=== PATIENT | female | born 1975 | race African-American/Black ===

== ENCOUNTER 2017-04-07 20:52 | Emergency (ER) | payer SELFPAY ==
[2017-04-07 20:53] VITALS: BP 146/98; PULSE 91; RESP 18; TEMP 36.8; O2SAT 100; BMI 44.6
--- NOTE | 2017-04-07 22:28 | ED.DCSUM_ITS ---
- ER Visit Summary Date of Service: 04/07/17 Chief Complaint: Back pain History of Present Illness: The patient is a 42 F who presents with lower back pain for 1-2 months. No history of fall or injury. No associated symptoms. She denies abdominal pain fever numbness tingling radiation to the legs urinary retention or fecal incontinence. She has had some relief with anti- inflammatory drugs. Physical Examination: Afebrile vitals unremarkable Heart regular rate and rhythm Lungs are clear Paraspinal lumbar tenderness more pronounced on the right Abdomen soft and nontender 5 out of 5 strength with dorsiflexion, plantarflexion, extensor hallucis longus bilaterally normal sensation light touch Test Results: Not indicated Emergency Department Course and Treatment: History and examination are consistent with lumbosacral strain. She was prescribed Mobic and Flexeril. She was advised to follow-up with her primary care physician. She understands return for new or worsening symptoms and was instructed on specific signs and symptoms to monitor for. All questions answered at bedside, patient and family agreeable to the plan. Patient discharged Treatment Plan: [] Disposition: Discharge Impression: Lumbosacral strain This note was generated with [employer] dictation software. It may contain incorrect words, spelling, and punctuation that were not noted in review of the chart prior to signing ED Disposition - Plan for ED Patient: Chief Complaint: Back Referrals: Mor Woodard MD [Primary Care Provider] -
--- NOTE | 2017-04-07 22:28 | ED.DEP ---
ED Disposition - Plan for ED Patient: Chief Complaint: Back Instructions: ED Sprain Strain Lumbar Prescriptions: Meloxicam [Mobic] 7.5 mg PO DAILY #14 tab Cyclobenzaprine [Flexeril] 10 mg PO TID PRN #20 tab PRN Reason: Muscle Spasm Referrals: Mor Woodard MD [Primary Care Provider] -
[2017-04-07 22:37] VITALS: BP 138/89; PULSE 88; RESP 17; O2SAT 95
== END 2017-04-07 22:38 | disposition home or self-care (01) ==
PROVIDERS: Emergency Provider Emergency Medicine; Family Provider Family Medicine; PCP Family Medicine
DX: S39.012A Strain of muscle, fascia and tendon of lower back, initial encounter (principal); X58.XXXA Exposure to other specified factors, initial encounter; Y93.9 Activity, unspecified; Y92.9 Unspecified place or not applicable; Y99.9 Unspecified external cause status; Z79.82 Long term (current) use of aspirin; Z79.899 Other long term (current) drug therapy; Z98.51 Tubal ligation status
CPT/HCPCS: 99282

== ENCOUNTER → 2017-04-28 15:38 | Outpatient (CLI) | payer SELFPAY ==
--- NOTE | 2017-04-28 15:42 | RAD_ITS ---
STUDY: X-RAY - LUMBAR SPINE REASON FOR EXAM: Female, 42 years old. Low back pain. No history of injury. TECHNIQUE: 5 view(s) of the lumbar spine were obtained. COMPARISON: None FINDINGS: Normal lumbar lordosis. There is no substantial scoliosis. There is a normal alignment of the vertebrae. Normal vertebral bodies and endplates. Normal disc space heights. The soft tissue structures are unremarkable. RAD/L/S Spine Min 4 Views IMPRESSION: Normal x-ray examination of the lumbar spine. Electronically Signed: Florian Zendejas MD at 14:02 EST Tel , Service support ,
--- NOTE | 2017-04-28 15:43 | RAD_ITS ---
STUDY: X-RAY - THORACIC SPINE REASON FOR EXAM: Female, 42 years old. Mid to low back pain. No history of injury. TECHNIQUE: 3 view(s) of the thoracic spine were obtained. COMPARISON: None. . FINDINGS: There is straightening of the normal thoracic kyphosis. There is mild dextroscoliosis of the lower thoracic spine which could be positional. Normal thoracic vertebrae and endplates. Normal disc space heights. There is mild prominence of the left paravertebral soft tissues which could be exaggerated by patient's positioning. RAD/Thoracic Spine 3 Views IMPRESSION: Straightening of the thoracic spine. Mild prominence of the left paravertebral soft tissues as described above. No demonstrated acute osseous changes. If symptoms persist, MRI of the thoracic spine is recommended. Electronically Signed: Florian Zendejas MD at 13:15 EST Tel , Service support ,
== END ==
PROVIDERS: Family Provider Family Medicine; PCP Family Medicine; Visit Provider Family Medicine
DX: M54.5 Low back pain (principal); M54.6 Pain in thoracic spine
CPT/HCPCS: 72072; 72110

== ENCOUNTER 2018-01-16 15:44 | Emergency (ER) | payer OTHER, SELFPAY ==
[2018-01-16 15:45] VITALS: BP 154/92; PULSE 90; RESP 16; TEMP 37.1; O2SAT 98; BMI 43.4
--- NOTE | 2018-01-16 16:01 | RAD_ITS ---
STUDY: X-RAY CHEST REASON FOR EXAM: Female, 43 years old. Cough and cold for 2 days. Fever. Left-sided chest pain when coughing. TECHNIQUE: PA and lateral views of the chest. COMPARISON: March 10, 2016. FINDINGS: The lungs are clear and expanded. There is no demonstrated pleural abnormality. Normal size heart. Normal mediastinum and milind. Normal visualized pulmonary arteries. Normal visualized aortic arch and descending thoracic aorta. Normal visualized thoracic spine. Normal visualized ribs, clavicles, and shoulders. There is no demonstrated abnormality of the visualized soft tissue structures of the upper abdomen. RAD/Chest PA and Lateral IMPRESSION: No acute cardiopulmonary disease or interval change. Electronically Signed: Yoshi Cooper DO at 16:46 EST Tel [phone], Service support ,
--- NOTE | 2018-01-16 16:08 | ED.DCSUM_ITS ---
- ER Visit Summary Date of Service: 01/16/18 Chief Complaint: Cough and rib cage pain History of Present Illness: The patient is a 43 F no significant past medical history. Says she is at a 3-day history starting on Monday with a productive cough of yellowish sputum. States she has been coughing so hard her rib cage hurts. She denies any shortness of breath. She has had a subjective but no documented fever. She has had nausea and vomiting due to phlegm. She denies any diarrhea. She denies any hemoptysis. Physical Examination: All signs are stable and afebrile. Pulse ox is 98% on room air no signs of hypoxia. H EENT exam unremarkable. Nasal congestion. Posterior pharynx moist and pink. No erythema or exudate. TMs normal. Neck nontender no lymphadenopathy. Lungs clear to auscultation bilaterally. Dry cough. Heart regular rate and rhythm no murmur. Chest wall is tender along the left lateral rib cage. There is no ecchymosis or bruising. No subcu air nor crepitance. Abdomen soft and nontender. Normal bowel sounds no peritoneal signs. Patient moving all 4 extremities. Neurovascular intact. Calves nontender without edema or cords. Neurologically she is awake alert with no focal motor deficits. Test Results: Chest x-ray PA and lateral views show no acute abnormality. No pneumonia seen. Emergency Department Course and Treatment: Treated with Motrin for pain. Treatment Plan: Plenty of fluids and rest. Hycodan cough syrup. Disposition: Discharge Impression: Acute bronchitis with chest wall strain from coughing This note was generated with [employer] dictation software. It may contain incorrect words, spelling, and punctuation that were not noted in review of the chart prior to signing ED Disposition - Plan for ED Patient: Chief Complaint: Cold Sx Referrals: Mor Woodard MD [Primary Care Provider] -
--- NOTE | 2018-01-16 16:25 | ED.DEP ---
ED Disposition - Plan for ED Patient: Disposition: Home or Assisted Living Chief Complaint: Cold Sx Instructions: Acute Bronchitis Prescriptions: Hydrocodone Bit/Homatropine [Hycodan Syrup] 5 ml GT Q4H PRN PRN 5 Days #5 udc PRN Reason: Cough Azithromycin [Zithromax Z-Yahir] 250 mg PO UD #1 box Referrals: Mor Woodard MD [Primary Care Provider] - 1 Week if not improving Additional Instructions: Hycodan for the cough. Motrin and Tylenol for chest wall pain. More than likely this is a viral syndrome. If not improving however may start antibiotic as needed.
[2018-01-16] MEDS: Ibuprofen 600 MG Tablet PO (16:31)
--- OUTSIDE RECORDS SUMMARY | 2018-03-14 09:08 | XMS RPT_ITS ---
:1975 Author Organization OH[facility] Care Team Providers Name Role Phone Mor Woodard Primary Care Unavailable Stanislav Marti Attending Unavailable Mor Woodard Attending Unavailable Mor Woodard Primary Care Unavailable Mor Woodard Primary Care Unavailable Cuco Bird Attending Unavailable PROBLEMS PROBLEMS DATE TYPE CONDITION / CODE ATTENDING STATUS SOURCE 01/16/2018 Unknown J40 - Cuco Bird Active [place] Bronchitis, not Community specified as Hospital acute or chronic Repository / J40(ICD-10) 04/28/2017 Unknown M54.5 - Low back Mor Woodard pain / Community M54.5(ICD-10) Hospital Repository 04/28/2017 Unknown M54.6 - Pain in Mor Woodard Active [place] thoracic spine / Community M54.6(ICD-10) Hospital Repository PROCEDURES PROCEDURES No Procedure Records FoundRESULTS RESULTS DISCHARGE INSTRUCTION Observed: 01/16/2018 Status: F Source: [place] 11:04 PM [facility] REPOSITORY [facility] Medical Records Department [address] [place] [address] Discharge Instruction 01/16/18 1625 MR#: [id number] Acct: [id number] Name: MATTHEW DRAPER Rep #: [id number] : 1975 43 From: Cuco Bird MD PCP: Mor Woodard MD Status: DEP ER ED Disposition - Plan for ED Patient: Disposition: Home or Assisted Living Chief Complaint: Cold Sx Instructions: Acute Bronchitis Prescriptions: Hydrocodone Bit/Homatropine [Hycodan Syrup] 5 ml GT Q4H PRN PRN 5 Days #5 udc PRN Reason: Cough Azithromycin [Zithromax Z-Yahir] 250 mg PO UD #1 box Referrals: Mor Woodard MD [Primary Care Provider] - 1 Week if not improving Additional Instructions: Hycodan for the cough. Motrin and Tylenol for chest wall pain. More than likely this is a viral syndrome. If not improving however may start antibiotic as needed. What to do if you have Problems For any increased pain, shortness of breath, bleeding, nausea or vomiting, chest pain, or any unexpected problems, contact your Primary Care Provider. Call [facility] ([phone]) or report to the closest Emergency Room. Call 911 if necessary. 01/16/18 4956 <Electronically signed by Cuco Bird MD> Date Cuco Bird MD Cosigner Signature (If Indicated): Date CC: Mor Woodard MD EMERGENCY DEPARTMENT Observed: 01/16/2018 Status: F Source: [place] SUMMARY 11:04 PM [facility] REPOSITORY [facility] Medical Records Department [address] [place] [address] Emergency Department Summary 01/16/18 1603 MR#: [id number] Acct: [id number] Name: MATTHEW DRAPER Rep #: [id number] : 1975 43 From: Cuco Bird MD PCP: Mor Woodard MD Status: DEP ER - ER Visit Summary Date of Service: 01/16/18 Chief Complaint: Cough and rib cage pain History of Present Illness: The patient is a 43 F no significant past medical history. Says she is at a 3-day history starting on Monday with a productive cough of yellowish sputum. States she has been coughing so hard her rib cage hurts. She denies any shortness of breath. She has had a subjective but no documented fever. She has had nausea and vomiting due to phlegm. She denies any diarrhea. She denies any hemoptysis. Physical Examination: All signs are stable and afebrile. Pulse ox is 98% on room air no signs of hypoxia. H EENT exam unremarkable. Nasal congestion. Posterior pharynx moist and pink. No erythema or exudate. TMs normal. Neck nontender no lymphadenopathy. Lungs clear to auscultation bilaterally. Dry cough. Heart regular rate and rhythm no murmur. Chest wall is tender along the left lateral rib cage. There is no ecchymosis or bruising. No subcu air nor crepitance. Abdomen soft and nontender. Normal bowel sounds no peritoneal signs. Patient moving all 4 extremities. Neurovascular intact. Calves nontender without edema or cords. Neurologically she is awake alert with no focal motor deficits. Test Results: Chest x-ray PA and lateral views show no acute abnormality. No pneumonia seen. Emergency Department Course and Treatment: Treated with Motrin for pain. Treatment Plan: Plenty of fluids and rest. Hycodan cough syrup. Disposition: Discharge Impression: Acute bronchitis with chest wall strain from coughing This note was generated with [employer] dictation software. It may contain incorrect words, spelling, and punctuation that were not noted in review of the chart prior to signing ED Disposition - Plan for ED Patient: Chief Complaint: Cold Sx Referrals: Mor Woodard MD [Primary Care Provider] - What to do if you have Problems For any increased pain, shortness of breath, bleeding, nausea or vomiting, chest pain, or any unexpected problems, contact your Primary Care Provider. Call [facility] ([phone]) or report to the closest Emergency Room. Call 911 if necessary. 01/16/18 2304 <Electronically signed by Cuco Bird MD> Date Cuco Bird MD Cosigner Signature (If Indicated): Date CC: Mor Woodard MD CHEST PA AND LATERAL Observed: 01/16/2018 Status: F Source: [place] 4:01 PM [facility] REPOSITORY [facility] Imaging Services [address] [place] [address] Chest PA and Lateral MR#: [id number] Acct: [id number] Name: MATTHEW DRAPER Rep #: [id number] : 1975 F 43 From: Yoshi Cooper DO PCP: Mor Woodard MD Status: DEP ER Study: Chest PA and Lateral Date of Exam: 01/16/18 Exam# [id number] Ordering Dr: Cuco Bird MD STUDY: X-RAY CHEST REASON FOR EXAM: Female, 43 years old. Cough and cold for 2 days. Fever. Left-sided chest pain when coughing. TECHNIQUE: PA and lateral views of the chest. COMPARISON: March 10, 2016. FINDINGS: The lungs are clear and expanded. There is no demonstrated pleural abnormality. Normal size heart. Normal mediastinum and milind. Normal visualized pulmonary arteries. Normal visualized aortic arch and descending thoracic aorta. Normal visualized thoracic spine. Normal visualized ribs, clavicles, and shoulders. There is no demonstrated abnormality of the visualized soft tissue structures of the upper abdomen. RAD/Chest PA and Lateral IMPRESSION: No acute cardiopulmonary disease or interval change. Electronically Signed: Yoshi Cooper DO at 16:46 EST Tel [phone], Service support , CC: Cuco Bird MD; Mor Woodard MD Hat Finishing Materials Preparer: Signed PROGRESS Observed: 10/31/2017 Status: COMPLETED Source: [place] 4:22 PM [facility] REPOSITORY HNO ID: [id number] Author: Birgit (Hem Marker) Service: (none) Author Type: Nurse Practitioner Type: Progress Notes Filed: 10/31/2017 4:40 PM Note Text: Subjective HPI HPI Matthew Draper is a 42 year old female who presents today for CC of blister on right wrist. This started 1 day ago. Has tried popping the blister/unsuccessful. Symptoms are worsened by nothing. Risk factors none, no known bite/burn/injury. .Patient presents with: Derm Problem: small bump on right hand since yesterday No past medical history on file. PAST SURGICAL HISTORY Procedure Laterality Date - HERNIA REPAIR HX - TUBAL LIGATION HX ALLERGIES Aspirin; Morphine; Penicillin MEDICATIONS ALBUTEROL INHALATION Inhale as instructed as needed. etodolac (LODINE) 300 mg capsule Take 300 mg by mouth twice daily. docusate sodium (COLACE) 100 mg capsule Take 1 capsule by mouth twice daily as needed for Constipation. FAMILY HISTORY Problem Relation Age of Onset - Cancer Father Social History Substance Use Topics - Smoking status: Never Smoker - Smokeless tobacco: Never Used - Alcohol use Yes Comment: occ Review of Systems Constitutional: Negative for chills and fever. Musculoskeletal: Negative for joint pain and myalgias. Skin: Positive for itching. Negative for rash. Objective Blood pressure 120/70, pulse 72, temperature 36.7 ?C (98.1 ?F), temperature source Tympanic, resp. rate 18, weight 125.2 kg (276 lb). Physical Exam Constitutional: She is oriented to person, place, and time and well-developed, well-nourished, and in no distress. Non-toxic appearance. She does not have a sickly appearance. No distress. HENT: Head: Normocephalic and atraumatic. Cardiovascular: Pulses: Radial pulses are 2+ on the right side. Pulmonary/Chest: Effort normal. No accessory muscle usage. No respiratory distress. Musculoskeletal: Right wrist: Normal. Arms: Neurological: She is alert and oriented to person, place, and time. Skin: She is not diaphoretic. ASSESSMENT/PLAN: 1. Blister - ICD9: 919.2, ICD10: T14.8XXA -do not rupture blister/keep covered -use medication as prescribed -follow up if symptoms persist, worsen, change - ALBUTEROL INHALATION - MUPIROCIN 2 % TOPICAL OINTMENT Birgit Swartz APRN.CNP CNOV Observed: 10/31/2017 Status: COMPLETED Source: [place] 4:15 PM [facility] REPOSITORY Office Visit ([facility]) MATTHEW DRAPER Agustina ([id number]) 1975 F Date Time Provider Department 10/31/17 4:15 PM BIRGIT SWARTZ (SCHOOL LUNCH MONITOR) [facility] During your visit today, we recorded the following information about you: Temperature Pulse Respiration Blood pressure 98.1 degrees 72/minute 18/minute 120/70 Weight 125.2 kg Birgit Swartz APRN.CNP 10/31/2017 4:40 PM Signed Subjective HPI HPI Matthew Berrios Baron is a 42 year old female who presents today for CC of blister on right wrist. This started 1 day ago. Has tried popping the blister/unsuccessful. Symptoms are worsened by nothing. Risk factors none, no known bite/burn/injury. .Patient presents with: Derm Problem: small bump on right hand since yesterday No past medical history on file. PAST SURGICAL HISTORY Procedure Laterality Date - HERNIA REPAIR HX - TUBAL LIGATION HX ALLERGIES Aspirin; Morphine; Penicillin MEDICATIONS ALBUTEROL INHALATION Inhale as instructed as needed. etodolac (LODINE) 300 mg capsule Take 300 mg by mouth twice daily. docusate sodium (COLACE) 100 mg capsule Take 1 capsule by mouth twice daily as needed for Constipation. FAMILY HISTORY Problem Relation Age of Onset - Cancer Father Social History Substance Use Topics - Smoking status: Never Smoker - Smokeless tobacco: Never Used - Alcohol use Yes Comment: occ Review of Systems Constitutional: Negative for chills and fever. Musculoskeletal: Negative for joint pain and myalgias. Skin: Positive for itching. Negative for rash. Objective Blood pressure 120/70, pulse 72, temperature 36.7 ?C (98.1 ?F), temperature source Tympanic, resp. rate 18, weight 125.2 kg (276 lb). Physical Exam Constitutional: She is oriented to person, place, and time and well-developed, well-nourished, and in no distress. Non-toxic appearance. She does not have a sickly appearance. No distress. HENT: Head: Normocephalic and atraumatic. Cardiovascular: Pulses: Radial pulses are 2+ on the right side. Pulmonary/Chest: Effort normal. No accessory muscle usage. No respiratory distress. Musculoskeletal: Right wrist: Normal. Arms: Neurological: She is alert and oriented to person, place, and time. Skin: She is not diaphoretic. ASSESSMENT/PLAN: 1. Blister - ICD9: 919.2, ICD10: T14.8XXA -do not rupture blister/keep covered -use medication as prescribed -follow up if symptoms persist, worsen, change - ALBUTEROL INHALATION - MUPIROCIN 2 % TOPICAL OINTMENT ROWAN Sears APRN.CNP 10/31/2017 4:36 PM Signed ASSESSMENT/PLAN: 1. Blister - ICD9: 919.2, ICD10: T14.8XXA -use medication as prescribed -follow up if symptoms persist, worsen, change - ALBUTEROL INHALATION - MUPIROCIN 2 % TOPICAL OINTMENT Referring Provider: SELF [200] Allergies As of Date: 10/31/2017 Noted Allergy Reaction ASPIRIN 10/02/2016 7 - Swelling MORPHINE 10/02/2016 10 - Anaphylaxis PENICILLIN 10/02/2016 10 - Anaphylaxis Date Reviewed: 10/31/2017 Reviewed by: Birgit Swartz - Fully Assessed Reason for Visit: Derm Problem [33] Cmt: small bump on right hand since yesterday Primary Visit Diagnosis:Blister [T14.8XXA] Order(s):mupirocin (BACTROBAN) 2 % ointmentApply 1 application to affected area three times daily. Location: right wristDisp: 22 gRfl: 0 Prescriptions as of 10/31/2017 Sig: ALBUTEROL INHALATION Inhale as instructed as neede* MUPIROCIN 2 % TOPICAL OINTMENT Apply 1 application to affect* ETODOLAC 300 MG CAPSULE Take 300 mg by mouth twice da* DOCUSATE SODIUM 100 MG CAPSULE Take 1 capsule by mouth twice* Patient not taking: Reported on 10/31/2017 Problem List As Of Date: 10/31/2017 (None) Other instructions from your clinician: ASSESSMENT/PLAN: 1. Blister - ICD9: 919.2, ICD10: T14.8XXA -use medication as prescribed -follow up if symptoms persist, worsen, change - ALBUTEROL INHALATION - MUPIROCIN 2 % TOPICAL OINTMENT Prescriptions ordered this encounter Disp Refills Start End MUPIROCIN 2 % TOPICAL OINTMENT 22 g 0 10/31/2017 Route: TOPICAL Sig: Apply 1 application to affected area three times daily. Location: right wrist Encounter Status:Closed by BIRGIT SWARTZ CNP on 10/31/17 THORACIC SPINE 3 Observed: 04/28/2017 Status: F Source: [facility] 3:43 PM [facility] REPOSITORY [facility] Imaging Services [address] [place] [address] Thoracic Spine 3 Views MR#: [id number] Acct: [id number] Name: MATTHEW DRAPER Rep #: [id number] : 1975 F 42 From: Florian Zendejas MD PCP: Mor Woodard Status: REG CLI Study: Thoracic Spine 3 Views Date of Exam: 04/28/17 Exam# [id number] Ordering Dr: Mor Woodard MD STUDY: X-RAY - THORACIC SPINE REASON FOR EXAM: Female, 42 years old. Mid to low back pain. No history of injury. TECHNIQUE: 3 view(s) of the thoracic spine were obtained. COMPARISON: None. . FINDINGS: There is straightening of the normal thoracic kyphosis. There is mild dextroscoliosis of the lower thoracic spine which could be positional. Normal thoracic vertebrae and endplates. Normal disc space heights. There is mild prominence of the left paravertebral soft tissues which could be exaggerated by patient's positioning. RAD/Thoracic Spine 3 Views IMPRESSION: Straightening of the thoracic spine. Mild prominence of the left paravertebral soft tissues as described above. No demonstrated acute osseous changes. If symptoms persist, MRI of the thoracic spine is recommended. Electronically Signed: Florian Zendejas MD at 13:15 EST Tel , Service support , CC: Mor Woodard Hat Finishing Materials Preparer: Signed L/S SPINE MIN 4 Observed: 04/28/2017 Status: F Source: [place] VIEWS 3:43 PM [facility] REPOSITORY [facility] Imaging Services [address] [place] [address] L/S Spine Min 4 Views MR#: [id number] Acct: [id number] Name: MATTHEW DRAPER Rep #: [id number] : 1975 F 42 From: Florian Zendejas MD PCP: Mor Woodard Status: REG CLI Study: L/S Spine Min 4 Views Date of Exam: 04/28/17 Exam# [id number] Ordering Dr: Mor Woodard MD STUDY: X-RAY - LUMBAR SPINE REASON FOR EXAM: Female, 42 years old. Low back pain. No history of injury. TECHNIQUE: 5 view(s) of the lumbar spine were obtained. COMPARISON: None FINDINGS: Normal lumbar lordosis. There is no substantial scoliosis. There is a normal alignment of the vertebrae. Normal vertebral bodies and endplates. Normal disc space heights. The soft tissue structures are unremarkable. RAD/L/S Spine Min 4 Views IMPRESSION: Normal x-ray examination of the lumbar spine. Electronically Signed: Florian Zendejas MD at 14:02 EST Tel , Service support , CC: Mor Woodard Hat Finishing Materials Preparer: Signed DISCHARGE INSTRUCTION Observed: 04/07/2017 Status: F Source: [place] 10:30 PM [facility] REPOSITORY [facility] Medical Records Department [address] [place] [address] Discharge Instruction 04/07/178 MR#: [id number] Acct: [id number] Name: MATTHEW DRAPER Rep #: [id number] : 1975 42 From: Stanislav Marti MD PCP: Mor Woodard Status: REG ER ED Disposition - Plan for ED Patient: Chief Complaint: Back Instructions: ED Sprain Strain Lumbar Prescriptions: Meloxicam [Mobic] 7.5 mg PO DAILY #14 tab Cyclobenzaprine [Flexeril] 10 mg PO TID PRN #20 tab PRN Reason: Muscle Spasm Referrals: Mor Woodard MD [Primary Care Provider] - What to do if you have Problems For any increased pain, shortness of breath, bleeding, nausea or vomiting, chest pain, or any unexpected problems, contact your Primary Care Provider. Call [facility] ([phone]) or report to the closest Emergency Room. Call 911 if necessary. 04/07/172229 <Electronically signed by Stanislav Marti MD> Date Stanislav Marti MD Cosigner Signature (If Indicated): Date CC: Mor Woodard EMERGENCY DEPARTMENT Observed: 04/07/2017 Status: F Source: [place] SUMMARY 10:28 PM [facility] REPOSITORY [facility] Medical Records Department [address] [place] [address] Emergency Department Summary 04/07/172226 MR#: [id number] Acct: [id number] Name: MATTHEW DRAPER Rep #: [id number] : 1975 42 From: Stanislav Marti MD PCP: Mor Woodard Status: REG ER - ER Visit Summary Date of Service: 04/07/17 Chief Complaint: Back pain History of Present Illness: The patient is a 42 F who presents with lower back pain for 1-2 months. No history of fall or injury. No associated symptoms. She denies abdominal pain fever numbness tingling radiation to the legs urinary retention or fecal incontinence. She has had some relief with anti-inflammatory drugs. Physical Examination: Afebrile vitals unremarkable Heart regular rate and rhythm Lungs are clear Paraspinal lumbar tenderness more pronounced on the right Abdomen soft and nontender 5 out of 5 strength with dorsiflexion, plantarflexion, extensor hallucis longus bilaterally normal sensation light touch Test Results: Not indicated Emergency Department Course and Treatment: History and examination are consistent with lumbosacral strain. She was prescribed Mobic and Flexeril. She was advised to follow-up with her primary care physician. She understands return for new or worsening symptoms and was instructed on specific signs and symptoms to monitor for. All questions answered at bedside, patient and family agreeable to the plan. Patient discharged Treatment Plan: [] Disposition: Discharge Impression: Lumbosacral strain This note was generated with [employer] dictation software. It may contain incorrect words, spelling, and punctuation that were not noted in review of the chart prior to signing ED Disposition - Plan for ED Patient: Chief Complaint: Back Referrals: Mor Woodard MD [Primary Care Provider] - What to do if you have Problems For any increased pain, shortness of breath, bleeding, nausea or vomiting, chest pain, or any unexpected problems, contact your Primary Care Provider. Call [facility] ([phone]) or report to the closest Emergency Room. Call 911 if necessary. 04/07/172227 <Electronically signed by Stanislav Marti MD> Date Stanislav Garrett Signature (If Indicated): Date CC: Mor Vance ALLERGIES ALLERGIES DATE TYPE / NAME / CODE REACTION SEVERITY SOURCE CODE 01/16/2018 Drug Penicillins/F001 Unknown Unknown [place] Allergy/41 289951(RXNORM) [facility] [id number]([facility]) Repository 01/16/2018 Drug morphine/[id number] Inflammation of Unknown [place] Allergy/41 545(RXNORM) vein [facility] [id number]([facility]) Repository 10/02/2016 DRUG ASPIRIN SWELLING [address] [id number]([facility]) 10/02/2016 DRUG MORPHINE ANAPHYLAXIS [address] [id number]( Repository [facility]) 10/02/2016 DRUG PENICILLIN ANAPHYLAXIS [address] [id number]( Repository [facility]) ENCOUNTERS ENCOUNTERS ADMIT/DISCHARGE ACCOUNT ADMITTING ENCOUNTER LOCATION SOURCE NUMBER CLASS 01/16/2018/01/17/20 [id number] Emergency [address] ing:ED Repository 10/31/2017/11/02/19 [id number] Ambulatory [address] Repository 04/28/[id number] [facility] ing:HPRAD Repository 04/07/2017/04/07/19 [id number] Emergency [address] ing:ED Repository PAYERS PAYERS ENCOUNTER GUARANTOR PAYER SUBSCRIBER SOURCE 01/16/2018 DAMECA S Primary DAMECA S [place] [id number] Insurance:OSVALDO FISCHER: [facility] [id number] Repository [address]Rtp: [phone] [id number] [phone] () Date:[id number] [address]CA: 01/16/2018 Secondary NOT GIVENUNK [place] Insurance:SELF PAY [facility] Number: Effective Repository Date:2018-01-16 04/28/2017 MATTHEW Berrios Primary NOT GIVENUNK [place] [id number] Insurance:SELF PAY [place], [place] Number: Effective Repository [id number]: (706) Date:2017-04-28 [phone] () 04/07/2017 MATTHEW Berrios Primary NOT GIVENUNK [place] [id number] Insurance:SELF PAY [place] Number: Effective Repository [id number]: ([phone]) Date:2017-04-07 [phone] ()
== END 2018-01-16 16:40 | disposition home or self-care (01) ==
PROVIDERS: Emergency Provider Emergency Medicine; Family Provider Family Medicine; PCP Family Medicine
DX: J20.9 Acute bronchitis, unspecified (principal); S29.012A Strain of muscle and tendon of back wall of thorax, initial encounter; X58.XXXA Exposure to other specified factors, initial encounter; Y93.9 Activity, unspecified; Y92.9 Unspecified place or not applicable; Y99.9 Unspecified external cause status; R11.2 Nausea with vomiting, unspecified; Z79.82 Long term (current) use of aspirin; Z79.899 Other long term (current) drug therapy
CPT/HCPCS: 71046; 99282

== ENCOUNTER 2018-02-27 16:33 | Emergency (ER) | payer BC, SELFPAY ==
[2018-02-27 16:34] VITALS: PULSE 91; RESP 18; TEMP 36.4; O2SAT 97; BMI 44.5
--- NOTE | 2018-02-27 16:48 | RAD_ITS ---
STUDY: X-RAY - LEFT KNEE REASON FOR EXAM: Female, 43 years old. Pain, fall one week ago. TECHNIQUE: 3 view(s) of the knee. COMPARISON: None. FINDINGS: Normal visualized distal femur. Normal visualized proximal tibia and fibula. Normal proximal tibiofibular articulation. Normal medial femorotibial compartment. Normal lateral femorotibial compartment. Normal patellofemoral articulation. The soft tissue structures are unremarkable. RAD/Knee 3 Views IMPRESSION: Normal x-ray examination of the knee. No evidence of traumatic injury. Electronically Signed: Brad Michelle MD at 17:16 EST Tel , Service support ,
--- NOTE | 2018-02-27 18:22 | ED.VISSUMM ---
- ER Visit Summary Date of Service: 02/27/18 Chief Complaint: [Injury to left knee] History of Present Illness: The patient is a 43 F [presents to the emergency department with complaint of injury to her left knee that occurred on . Patient was coming down off of a porch when she slipped and partially did the splits. Patient states that her left knee twisted and pulled. She describes a burning sensation diffusely about her knee. Patient states that at times feels like the knees and give out. Patient states that the knee will pop at times.] Physical Examination: [HEENT-PERRLA, EOMI. Cranial nerves II through XII grossly intact. TMs clear. Mucous membranes moist. No adenopathy. Cardiovascular-regular rate and rhythm without murmur or ectopy Lungs-clear to auscultation, chest wall stable without crepitus or subcu emphysema Abdomen-normoactive bowel sounds, soft, nontender, no rebound or rigidity, no peritoneal signs. Extremities-intact ?4, normal range of motion, normal pulses, atraumatic. Left knee-no effusion noted. There is no ecchymosis or bruising noted. Patient has some mild diffuse tenderness on exam. Patient does not tolerate ligamentous exam secondary to pain. Neurovascular intact.] Test Results: [X-rays of the left knee obtained showed no fractures] Emergency Department Course and Treatment: [Patient was given a knee immobilizer] Treatment Plan: [Patient will be given a prescription for Naprosyn and [place] for pain. Patient will be referred to orthopedics for follow-up] Disposition: [Discharged home in stable condition] Impression: [Left knee sprain-possible internal derangement] This note was generated with [employer] dictation software. It may contain incorrect words, spelling, and punctuation that were not noted in review of the chart prior to signing ED Disposition - Plan for ED Patient: Chief Complaint: Lower Extremity Injury Referrals: Mor Woodard MD [Primary Care Provider] -
--- NOTE | 2018-02-27 18:24 | ED.DEP ---
ED Disposition - Plan for ED Patient: Chief Complaint: Lower Extremity Injury Instructions: ED Meniscal Injury Knee Poss Prescriptions: Hydrocodone Bitart/Apap 5-325 [[place] 5MG-325MG] 1 tab PO Q4H PRN PRN 2 Days #14 tab PRN Reason: Pain Naproxen [Naprosyn] 500 mg PO BID PRN #20 tab Referrals: Mor Woodard MD [Primary Care Provider] - Kaushik Saldaña MD [STAFF PHYSICIAN] - 3-5 Days
[2018-02-27 18:56] VITALS: PULSE 95; RESP 14; O2SAT 98
== END 2018-02-27 18:57 | disposition home or self-care (01) ==
LOC: ED 17:06
PROVIDERS: Emergency Provider Emergency Medicine; Family Provider Family Medicine; PCP Family Medicine
DX: S83.92XA Sprain of unspecified site of left knee, initial encounter (principal); W17.89XA Other fall from one level to another, initial encounter; Y93.9 Activity, unspecified; Y92.9 Unspecified place or not applicable; Y99.9 Unspecified external cause status; Z79.82 Long term (current) use of aspirin; Z79.1 Long term (current) use of non-steroidal anti-inflammatories (NSAID); Z79.899 Other long term (current) drug therapy
CPT/HCPCS: 73562; 99282

== ENCOUNTER 2018-07-01 07:08 | Emergency (ER) | payer BC, SELFPAY ==
[2018-07-01 07:09] VITALS: BP 117/80; PULSE 102; RESP 20; TEMP 36.4; O2SAT 100; BMI 46.5
--- NOTE | 2018-07-01 07:38 | CT_ITS ---
STUDY: CT ABDOMEN AND PELVIS WITH CONTRAST REASON FOR EXAM: Female, 43 years old. Nausea vomiting diarrhea right upper quadrant pain RADIATION DOSAGE (If Supplied By Facility): CTDIvol = ( 36.17 ) mGy, DLP = ( 1951.454 ) mGycm TECHNIQUE: Transaxial images were obtained from the dome of the diaphragm to the symphysis pubis without oral contrast. 100CC IV Isovue 300 was administered. Sagittal and coronal images were reconstructed. Individualized dose optimization techniques were used for this CT. COMPARISON: CT chest November 22, 2015 FINDINGS: The visualized lung bases are unremarkable. The visualized portions of the heart are within normal limits. There is a stable right signed intramammary lymph node or nodule measuring 8 mm right breast. Normal liver. The gallbladder is distended similar to the prior study. Normal spleen. Normal pancreas. Normal bilateral adrenal glands. There is a vague focus of low attenuation within the right kidney that measures 1.1 x 1.1 cm. This areas out of the field of view on the prior CT chest. Normal left kidney. Normal visualized stomach. Normal small intestine. There is a moderate amount of stool within the fairly redundant appearing distal descending colon. There is a fluid appearance of the ascending colon and transverse colon. The appendix is fluid-filled and of normal caliber. Normal abdominal aorta. Normal inferior vena cava. Normal retroperitoneum. Normal urinary bladder. There is a mildly thickened appearance of the endometrium. This may measure up to 1.4 cm allowing for cycle. Normal abdominal wall. Normal osseous structures. CT/Abdomen/Pelvis W IV Cont ONLY IMPRESSION: There are air-fluid levels within the proximal colon to the level of the splenic flexure. There is moderate stool in the distal colon. The patient may develop diarrhea. Consider gastroenteritis. Distended gallbladder similar to the prior study. Incidental finding of mild thickening of the endometrium could consider follow-up pelvic ultrasound on a routine basis. Electronically Signed: Giselle Haji MD at 10:18 EDT Tel , Service support ,
--- NOTE | 2018-07-01 07:39 | ED.VISSUMM ---
- ER Visit Summary Date of Service: 07/01/18 Chief Complaint: Abdominal pain, vomiting and diarrhea History of Present Illness: The patient is a 43 F who presents for 2 hours of vomiting and diarrhea, now with severe abdominal pain. Patient woke from sleep with vomiting and diarrhea. After the onset of the symptoms, she developed diffuse abdominal pain. She was also diaphoretic and sweaty. Patient denies any urinary symptoms, chest pain or shortness of breath. No other members of the family have similar symptoms. Patient has no medical history. She takes multivitamins daily. Allergy to morphine. No tobacco use. Physical Examination: Vital signs: afebrile, hemodynamically stable, no hypoxia on room air General: well nourished, well developed, appears uncomfortable Skin: warm, dry, no rash, no pallor HEENT: normocephalic and atraumatic; PERRL, EOMI, moist mucous membranes Cardiovascular: Tachycardic rate and rhythm without murmurs, no peripheral edema, 2+ pulses all distal extremities Respiratory: No increased work of breathing, lungs are clear to auscultation bilaterally, no rales, rhonchi or wheezing Abdominal: Abdomen is soft, diffusely tender to light palpation with normoactive bowel sounds, no guarding or rebound, no masses MSK: Moves all extremities, no deformities, normal strength Neuro: Awake and alert, oriented ?4. No facial droop, sensation and motor function intact and symmetric Test Results: Abnormal Lab Results 07/01/18 07/01/18 07/01/18 09:05 09:05 09:05 WBC 14.6 H RBC 4.29 Hgb 14.3 Hct 42.4 MCV 98.8 MCH 33.3 H MCHC 33.7 RDW 13.3 RDW Differential 46.5 H Plt Count 157 MPV 11.1 Immature Gran % (Auto) 0.300 Neut % (Auto) 84.3 H Lymph % (Auto) 8.6 L [place] % (Auto) 6.2 Eos % (Auto) 0.4 Baso % (Auto) 0.2 Absolute Neuts (auto) 12.3 H Absolute Lymphs (auto) 1.25 Total Counted Not Reportable Sodium 142 Potassium 4.1 Chloride 110 H Carbon Dioxide 24.0 Anion Gap 8 BUN 11 Creatinine 0.97 Estim Creat Clear Calc 69.29 Est GFR (MDRD) Af Amer 80 Est GFR (MDRD) Non-Af 66 BUN/Creatinine Ratio 11.4 Glucose 120 H Calcium 8.7 Total Bilirubin 0.20 AST 16 ALT 28 Alkaline Phosphatase 83 Total Protein 7.8 Albumin 3.6 Globulin 4.2 Albumin/Globulin Ratio 0.9 Lipase 42 L Serum , Qual NEGATIVE Clinical Impression(s) from Imaging Studies Abdomen/Pelvis CT 07/01/18 07:38 IMPRESSION: There are air-fluid levels within the proximal colon to the level of the splenic flexure. There is moderate stool in the distal colon. The patient may develop diarrhea. Consider gastroenteritis. Distended gallbladder similar to the prior study. Incidental finding of mild thickening of the endometrium could consider follow-up pelvic ultrasound on a routine basis. Electronically Signed: Giselle Haji MD at 10:18 EDT Tel , Service support , Medications Given Discontinued Medications Hydromorphone HCl (Dilaudid Inj) 1 mg IV X1 ONE Stop: 07/01/18 07:39 Last Admin: 07/01/18 08:55 Dose: 1 mg Sodium Chloride () 1,000 mls @ 1,000 mls/hr IV .Q1H ONE Stop: 07/01/18 08:37 Last Admin: 07/01/18 08:55 Dose: 1,000 mls/hr Ketorolac Tromethamine (Toradol) 15 mg IV X1 ONE Stop: 07/01/18 11:02 Emergency Department Course and Treatment: Patient received Zofran via EMS. Patient was given IV fluids and Dilaudid for her symptoms. Labs and CT of the abdomen and pelvis performed. Patient had a leukocytosis without a left shift, which may be secondary to the marginalization from vomiting. Otherwise labs were unremarkable. CT of the abdomen and pelvis showed no acute surgical process, and it was consistent with gastroenteritis. On reevaluation patient had significant improvement of her pain and no further nausea. No diarrhea in the emergency department. Patient was given a p.o. challenge. She was given Toradol for residual pain. Patient discharged with a scription for Zofran and Bentyl. Return precautions given. Patient discharged home in improved condition. Treatment Plan: [] Disposition: [] Impression: Acute gastroenteritis This note was generated with Dragon dictation software. It may contain incorrect words, spelling, and punctuation that were not noted in review of the chart prior to signing ED Disposition - Plan for ED Patient: Disposition: Home or Assisted Living Instructions: ED Vomiting Diarrhea Nonspecific Ad, ED Gastroenteritis Viral Prescriptions: Ondansetron [Zofran Odt] 4 mg PO Q8H PRN PRN #10 tab PRN Reason: Nausea Dicyclomine HCl [Bentyl] 20 mg PO TIDAC #30 cap Referrals: Mor Woodard MD [Primary Care Provider] - 3-5 Days if not improving Additional Instructions: You may use the Zofran as needed for nausea. Use the dicyclomine 4 times daily to help with crampy abdominal pain. Drink plenty of fluids to stay hydrated. Gatorade and Powerade are good choices while you are not feeling well. If you have any worsening of your condition or any new concerning symptoms, please return immediately to the emergency department for another evaluation.
[2018-07-01 08:52] VITALS: BP 122/75; PULSE 99; RESP 16; TEMP 37.1; O2SAT 100
[2018-07-01] MEDS: 0.9% Normal Saline 1,000 ML 1000 ML IV (08:55)
[2018-07-01] MEDS: HYDROmorphone 1 MG/ML Syringe IV (08:55)
[2018-07-01 09:23] LABS: Absolute Lymphocyte Count 1.25 X10^3/ul (0.83-4.51); Absolute Neutrophil Count 12.3 X10^3/uL (2.0-7.7); Basophil# 0.03 X10^3/uL; Basophil% 0.2 % (0-1); Eosinophil# 0.06 X10^3/uL; Eosinophils% 0.4 % (0-5); Hematocrit 42.4 % (37-47); Hemoglobin 14.3 g/dl (12.0-15.0); Lymphocyte # 1.25 X10^3/ul (4.0); Lymphocyte % 8.6 % (19-41); Mean Corp Hgb Conc 33.7 g/gl (32-36); Mean Corpuscular Hgb 33.3 pg (27.0-32.0); Mean Corpuscular Volume 98.8 fL (81-99); Mean Platelet Vol. 11.1 fl (6.2-12.0); Monocyte# 0.91 X10^3/uL; Monocyte% 6.2 % (0-10); Neutrophil # 12.28 X10^3/uL (2.7-7.7); Neutrophil % 84.3 % (47-70); POSITIVE COUNT NO; POSITIVE DIFFERENTIAL NO; POSITIVE MORPHOLOGY NO; Platelet Count 157 K/mm3 (150-450); RBC Distribution Width CV 13.3 % (11.6-14.6); RBC Distribution Width SD 46.5 fl (35.1-43.9); Red Blood Count 4.29 M/mm3 (4.2-5.4); White Blood Count 14.6 K/mm3 (4.4-11.0)
[2018-07-01 09:32] LABS: ALB/GLOB Ratio 0.9 RATIO (0.9-2.4); AST(SGOT) 16 U/L (15-37); Alanine Aminotransfer ALT/SGPT 28 U/L (13-56); Albumin, Serum 3.6 g/dL (3.2-5.0); Alkaline Phosphatase 83 U/L (45-117); Anion Gap 8 (5-15); BUN 11 mg/dL (7-18); BUN/Creat Ratio 11.4 RATIO (10-20); Calcium,Total 8.7 mg/dL (8.5-10.1); Chloride 110 mmol/L (98-107); Creatinine, Serum 0.97 mg/dL (0.55-1.02); EST Glomerular Filtration Rate 66 mL/min (>60); Est Glom Filt Rate - Afr Amer 80 mL/min (>60); Estimated Creatinine Clearance 69.29 ml/min; Globulin 4.2 g/dL (2.2-4.2); Glucose 120 mg/dL (74-106); Lipase 42 U/L (73-393); Potassium 4.1 mmol/L (3.5-5.1); Protein, Total 7.8 g/dL (6.4-8.2); Sodium Level 142 mmol/L (136-145)
[2018-07-01 09:33] LABS: Internal QC Validated? YES +Cl - CLEAR BKGD; Pregnancy, Serum, hCG Quali. NEGATIVE Negative
[2018-07-01] MEDS: Ketorolac 15 MG/ML Vial IV (11:12)
[2018-07-01 11:25] VITALS: BP 136/108; PULSE 96; RESP 18; O2SAT 100
== END 2018-07-01 11:34 | disposition home or self-care (01) ==
PROVIDERS: Emergency Provider Emergency Medicine; Family Provider Family Medicine; PCP Family Medicine
DX: K52.9 Noninfective gastroenteritis and colitis, unspecified (principal); Z88.5 Allergy status to narcotic agent
CPT/HCPCS: 36415; 74177; 80053; 83690; 84703; 85025; 96361; 96374; 96375; 99285; J7030; Q9967; A4216

== ENCOUNTER 2018-12-09 09:23 | Emergency (ER) | payer BC, SELFPAY ==
[2018-12-09 09:24] VITALS: BP 155/83; PULSE 99; RESP 17; TEMP 36.8; O2SAT 96; BMI 45.9
--- NOTE | 2018-12-09 09:35 | ED.DCSUM_ITS ---
- ER Visit Summary Date of Service: 12/09/18 Chief Complaint: Headache History of Present Illness: The patient is a 43 F with a headache. This started gradually over the past week. Her head hurts all over. Worse with light and noise. She thought she might have some sinus congestion as well. She tried E xcedrin Migraine, but it is not helping. She has a history of migraines. Denies trauma. Denies blood thinners. Denies . Physical Examination: Afebrile and vital signs unremarkable. Head and neck atraumatic. HEENT exam unremarkable. Cranial nerves grossly intact. Neck nontender with good range of motion. Skin normal. Normal strength and sensation. Normal gait. Test Results: None indicated Emergency Department Course and Treatment: Patient likely has a migraine. She has a history of migraines and similar symptoms. Denies trauma or other red flag features. She was treated with Compazine, Benadryl, Toradol, and normal saline bolus. On reevaluation, patient is resting. She awakens to voice. She says her headache has improved. She is requesting discharge. She declined further observation or further medication. I do not believe that any further diagnostic testing is indicated. Follow-up with her doctor. Return for any new or worsening issues. Treatment Plan: As above Disposition: Discharge Impression: 1. Migraine This note was generated with [employer] software. It may contain incorrect words, spelling, and punctuation that were not noted in review of the chart prior to signing ED Disposition - Plan for ED Patient: Referrals: Mor Woodard MD [Primary Care Provider] -
[2018-12-09] MEDS: DiphenhydrAMINE 50 MG/ML Syringe 25 MG IV (10:36)
[2018-12-09] MEDS: 0.9% Normal Saline 1,000 ML 999 ML IV (10:36)
[2018-12-09] MEDS: Ketorolac 30 MG/ML Syringe IV (10:37)
[2018-12-09] MEDS: proCHLORPERazine 10 MG/2 ML Vial IV (10:38)
--- NOTE | 2018-12-09 10:59 | ED.DEP ---
ED Disposition - Plan for ED Patient: Instructions: ED, Migraine (Classical) Referrals: Mor Woodard MD [Primary Care Provider] -
[2018-12-09 11:09] VITALS: BP 116/96
== END 2018-12-09 11:12 | disposition home or self-care (01) ==
PROVIDERS: Emergency Provider Emergency Medicine; Family Provider Family Medicine; PCP Family Medicine
DX: G43.909 Migraine, unspecified, not intractable, without status migrainosus (principal)
CPT/HCPCS: 96361; 96374; 96375; 99285; J7030; A4216

== ENCOUNTER → 2021-09-22 | Outpatient (CLI) | payer BC, SELFPAY ==
[2021-09-22 18:08] LABS: Absolute Lymphocyte Count 2.66 X10^3/uL (0.83-4.51); Absolute Neutrophil Count 4.5 X10^3/uL (2.0-7.7); Basophil# 0.05 X10^3/uL; Basophil% 0.6 % (0-1); Eosinophil# 0.14 X10^3/uL; Eosinophils% 1.7 % (0-5); Hematocrit 36.1 % (37-47); Hemoglobin 12.3 g/dL (12.0-15.0); Lymphocyte # 2.66 X10^3/ul (0.83-4.51); Lymphocyte % 33.1 % (19-41); Mean Corp Hgb Conc 34.1 g/dL (32-36); Mean Corpuscular Hgb 33.6 pg (27.0-32.0); Mean Corpuscular Volume 98.6 fL (81-99); Mean Platelet Vol. 11.8 fl (6.2-12.0); Monocyte# 0.64 X10^3/uL; NRBC Flagged by Analyzer 0 % (0-5); Neutrophil # 4.52 X10^3/uL (2.7-7.7); Neutrophil % 56.4 % (47-70); Platelet Count 180 K/mm3 (150-450); RBC Distribution Width CV 12.5 % (11.6-14.6); RBC Distribution Width SD 45.1 fl (35.1-43.9); Red Blood Count 3.66 M/mm3 (4.2-5.4)
[2021-09-22 18:43] LABS: ALB/GLOB Ratio 0.9 RATIO (0.9-2.4); AST(SGOT) 20 U/L (15-37); Alanine Aminotransfer ALT/SGPT 32 U/L (13-56); Albumin, Serum 3.3 g/dL (3.2-5.0); Alkaline Phosphatase 70 U/L (45-117); Anion Gap 6 (5-15); BUN 13 mg/dL (7-18); BUN/Creat Ratio 13.6 RATIO (10-20); Calcium,Total 8.6 mg/dL (8.5-10.1); Chloride 108 mmol/L (98-107); Creatinine, Serum 0.96 mg/dL (0.55-1.02); EST Glomerular Filtration Rate 66 mL/min (>60); Est Glom Filt Rate - Afr Amer 80 mL/min (>60); Globulin 3.6 g/dL (2.2-4.2); Glucose 97 mg/dL (74-106); Protein, Total 6.9 g/dL (6.4-8.2); Sodium Level 138 mmol/L (136-145)
[2021-09-22 19:49] LABS: Free T3 2.2 pg/mL (2.18-3.98); T4 Free Direct 0.89 ng/dL (0.76-1.46); Thyroid Stim Hormone (TSH) 0.66 uIU/mL (0.358-3.74)
[2021-09-22 22:37] LABS: Hepatitis B Surface Antibody Reactive; Hepatitis B Surface Antigen Non-Reactive (Nonreactive); Hepatitis C Antibody Non-Reactive (Nonreactive)
[2021-09-24 15:08] LABS: QNTFERON TB Mitogen Value > 10.00 IU/mL (.); QNTFERON TB1+ Ag Value 0.16 IU/mL (.); QNTFERON TB2+ Ag Value 0.17 IU/mL (.)
[2021-09-24 15:25] LABS: Hepatitis B Core Ab Total Negative (Negative); QNTIFERON TB Positive Criteria Negative (Negative)
== END | disposition home or self-care (01) ==
PROVIDERS: PCP Family Medicine; Visit Provider Dermatology
DX: L40.0 Psoriasis vulgaris (principal); L41.1 Pityriasis lichenoides chronica; Z79.899 Other long term (current) drug therapy
CPT/HCPCS: 36415; 80053; 84439; 84443; 84481; 85025; 86480; 86704; 86706; 86803; 87340

== ENCOUNTER → 2021-10-11 | Outpatient (CLI) | payer BC, SELFPAY ==
[2021-10-11 15:04] LABS: Absolute Lymphocyte Count 2.55 X10^3/uL (0.83-4.51); Absolute Neutrophil Count 5.1 X10^3/uL (2.0-7.7); Basophil# 0.05 X10^3/uL; Basophil% 0.6 % (0-1); Eosinophil# 0.14 X10^3/uL; Eosinophils% 1.7 % (0-5); Hemoglobin 12.6 g/dL (12.0-15.0); Lymphocyte # 2.55 X10^3/ul (0.83-4.51); Lymphocyte % 30.5 % (19-41); Mean Corp Hgb Conc 33.2 g/dL (32-36); Mean Corpuscular Hgb 32.6 pg (27.0-32.0); Mean Corpuscular Volume 98.4 fL (81-99); Monocyte# 0.52 X10^3/uL; Monocyte% 6.2 % (0-10); NRBC Flagged by Analyzer 0 % (0-5); Neutrophil # 5.08 X10^3/uL (2.7-7.7); Neutrophil % 60.6 % (47-70); Platelet Count 224 K/mm3 (150-450); RBC Distribution Width CV 12.6 % (11.6-14.6); RBC Distribution Width SD 45.1 fl (35.1-43.9); Red Blood Count 3.86 M/mm3 (4.2-5.4); White Blood Count 8.4 K/mm3 (4.4-11.0)
[2021-10-11 15:19] LABS: ALB/GLOB Ratio 0.8 RATIO (0.9-2.4); AST(SGOT) 17 U/L (15-37); Alanine Aminotransfer ALT/SGPT 28 U/L (13-56); Albumin, Serum 3.2 g/dL (3.2-5.0); Alkaline Phosphatase 78 U/L (45-117); Anion Gap 6 (5-15); BUN 12 mg/dL (7-18); BUN/Creat Ratio 14.7 RATIO (10-20); Calcium,Total 8.7 mg/dL (8.5-10.1); Chloride 107 mmol/L (98-107); Creatinine, Serum 0.82 mg/dL (0.55-1.02); EST Glomerular Filtration Rate 79 mL/min (>60); Est Glom Filt Rate - Afr Amer 96 mL/min (>60); Globulin 3.8 g/dL (2.2-4.2); Glucose 94 mg/dL (74-106); Sodium Level 140 mmol/L (136-145)
== END | disposition home or self-care (01) ==
LOC: MTLAB 13:23
PROVIDERS: PCP Family Medicine; Referring Provider Dermatology; Visit Provider Dermatology
DX: L41.1 Pityriasis lichenoides chronica (principal)
CPT/HCPCS: 36415; 80053; 85025